=== PATIENT | female | born 1990 | race Caucasian/White ===

== ENCOUNTER 2022-04-09 22:15 | Emergency (ER) | payer SELFPAY ==
[~2022-04-09] VITALS: Ht 165.1 cm; Wt 51.4 kg
[2022-04-09] MEDS ORDERED: ACETAMINOPHEN 500 MG TABLET PO ONE (22:30)
[2022-04-09] MEDS ORDERED: POVIDONE-IODINE 10% 15 ML SOLUTION UD TP ONE (22:30)
[2022-04-09] MEDS ORDERED: LIDOCAINE 1% 10 ML VIAL PERC ONE (22:30)
[2022-04-09] MEDS ORDERED: PERTUSS(ACELL),DIPH,TET VAC/PF 0.5 ML SYRINGE IM. ONE (22:30)
[2022-04-09] MEDS ORDERED: TraMADol HCL 50 MG TABLET PO ONE (22:30)
[2022-04-09 23:15] VITALS: BP 111/62
== END 2022-04-09 23:19 | disposition home or self-care (01) ==
LOC: EMS 22:21
DX: S61.210A Laceration without foreign body of right index finger without damage to nail, initial encounter (principal); W23.1XXA Caught, crushed, jammed, or pinched between stationary objects, initial encounter; Y93.89 Activity, other specified; Y92.89 Other specified places as the place of occurrence of the external cause; Y99.8 Other external cause status
CPT/HCPCS: 99284; 90715; 90471; 12001; J3490